=== PATIENT | female | born 1970 | race Caucasian/White ===

== ENCOUNTER → 2017-11-23 | Outpatient (CLI) | payer OTHER ==
[~2017-11-23] MED LIST: ASPI325 PO; DULO60 PO; FERR325 PO; IBUP800 PO; LISI20 PO; METO50ER PO; OXYACE5T PO; RXOXYACE PO; SIMV40 PO
== END ==
LOC: LAB 09:52 → LAB SHORT 09:52
PROVIDERS: Obstetrics & Gynecology
DX: Z01.419 Encounter for gynecological examination (general) (routine) without abnormal findings (principal)
CPT/HCPCS: 87624; G0123

== ENCOUNTER → 2018-03-08 | Outpatient (CLI) | payer OTHER | END | disposition home or self-care (01) | LOC: LAB SHORT 16:02 → LAB 16:02 → LAB SHORT 03-10 16:00 | DX: R19.7 Diarrhea, unspecified (principal) | CPT/HCPCS: 87329; 87493; 89055 ==

== ENCOUNTER → 2021-02-17 | Outpatient (CLI) | payer OTHER | END | disposition home or self-care (01) | LOC: LAB SHORT 08:57 | DX: D22.5 Melanocytic nevi of trunk (principal) | CPT/HCPCS: 88305 ==

== ENCOUNTER 2022-02-25 10:35 | Emergency (ER) | payer OTHER ==
[~2022-02-25] VITALS: Ht 170.2 cm; Wt 122.5 kg
== END 2022-02-25 10:48 | disposition home or self-care (01) ==
LOC: ER 10:35
DX: F41.9 Anxiety disorder, unspecified (principal); I10 Essential (primary) hypertension; Z79.82 Long term (current) use of aspirin; Z79.899 Other long term (current) drug therapy
CPT/HCPCS: 99282

== ENCOUNTER → 2022-12-02 | Outpatient (CLI) | payer OTHER ==
[~2022-12-02] MED LIST changes: +ASPI81CH PO; +ATOR20 PO; +BUSP5 PO; +LEVSOD88 PO; +PROG100 PO
== END ==
LOC: LAB SHORT 17:03 → LAB 17:03
DX: N30.00 Acute cystitis without hematuria (principal)
CPT/HCPCS: 87077; 87086; 87147; 87186

== ENCOUNTER 2023-07-21 09:55 | Day surgery (SDC) | payer OTHER ==
[~2023-07-21] VITALS: Ht 170.2 cm; Wt 127.5 kg
[~2023-07-21 09:55] MED LIST changes: +LEVSOD75 PO; +LOTREXONE1.5 MG PO; +TRULICITY4.5 MG/0.5 SQ
[2023-07-21 10:42] VITALS: BP 123/77
--- NOTE | 2023-07-21 12:04 | NUR ---
07/21/23 1204 Joselin Clark History, Chart, Medications and Allergies reviewed before start of procedure.MONITOR INTACT WITH CONTINUOUS PULSE OXIMETRY, CONTINUOUS END TITAL CO2, AND INTERMITTENT BLOOD PRESSURE.3-LEAD EKG REVIEWED WITH PHYSICIAN PRIOR TO START OF PROCEDURE.O2 VIA N/C INTACT THROUGHOUT SEDATION/PROCEDURE. PROVIDING ANESTHESIA.
[2023-07-21 12:27] VITALS: BP 108/67
[2023-07-21 12:48] VITALS: BP 118/75
--- NOTE | 2023-07-21 13:02 | NUR ---
Discharge instructions reviewed with patient. Patient verbalizes understanding. Copy given to patient to take home. Patient States Post-Procedure ride home has been arranged. Discharged via wheelchair to private car for ride home.
== END 2023-07-21 13:02 | disposition home or self-care (01) ==
LOC: ORSCMMR 09:55 → ORD 11:30 → ORSCMMR 13:02
PROVIDERS: Internal Medicine Gastroenterology
PROC: 0DBN8ZX Excision of Sigmoid Colon, Via Natural or Artificial Opening Endoscopic, Diagnostic (ICD-10-PCS; principal; 2023-07-21 11:30)
DX: R19.4 Change in bowel habit (principal); K59.09 Other constipation; K63.5 Polyp of colon; I10 Essential (primary) hypertension; E11.9 Type 2 diabetes mellitus without complications; E03.9 Hypothyroidism, unspecified; E66.01 Morbid (severe) obesity due to excess calories; Z68.41 Body mass index [BMI] 40.0-44.9, adult; Z87.891 Personal history of nicotine dependence; Z79.899 Other long term (current) drug therapy; F41.8 Other specified anxiety disorders
CPT/HCPCS: 82947; 88305; J2704; J7120